=== PATIENT | female | born 1960 | race Caucasian/White ===

== ENCOUNTER 2017-01-15 12:26 | Observation (INO) | payer OTHER, MEDICAID ==
[~2017-01-15] VITALS: Ht 165.1 cm; Wt 86.2 kg
[2017-01-15 13:33] LABS: Basophils # (auto) 0 uL; Basophils % (auto) 0.1 % (0.0-2.0); CONDITION Y; Eosinophils # (auto) 0 uL; Eosinophils % (auto) 0.2 % (0.0-7.0); Hematocrit 41.5 % (36.0-46.0); Hemoglobin 14.1 g/dL (12.2-16.2); Lymphocytes # (auto) 1.3 uL; Lymphocytes % (auto) 21.1 % (10.0-50.0); Mean Corpuscular Hemoglobin 30.5 pg (28.0-32.0); Mean Corpuscular Hgb Conc. 33.8 g/dL (32.0-36.0); Mean Corpuscular Volume 90.3 fL (80.0-100.0); Mean Platelet Volume 9.4 fL (7.4-10.4); Monocytes # (auto) 0.1 uL; Monocytes % (auto) 2.3 % (0.0-12.0); Neutrophils # (auto) 4.6 uL; Neutrophils % (auto) 76.3 % (37.0-80.0); Platelet Count (auto) 345 10^3/uL (140-450); Red Cell Distribution Width 13.6 % (11.6-16.0)
[2017-01-15 14:02] LABS: Albumin 4.1 g/dL (3.4-5.0); Alkaline Phosphatase 85 U/L (45-117); Amylase 201 U/L (25-115); Anion Gap 9 (5-15); Aspartate Aminotransferase 17 U/L (15-37); BUN/Creatinine Ratio 13.4; Bilirubin, Total 0.8 mg/dL (0.2-1.0); Blood Urea Nitrogen 11 mg/dL (7-18); Calcium 9.4 mg/dL (8.5-10.1); Carbon Dioxide 22 mmol/L (21-32); Chloride 107 mmol/L (98-107); GFR African American 93 mL/min; GFR Non-African American 77 mL/min; Glucose 113 mg/dL (74-106); Sodium 138 mmol/L (136-145); Total Protein 8.1 g/dL (6.4-8.2)
[2017-01-15] MEDS ORDERED: SODIUM CHLORIDE 0.9% 1,000 ML IVB ONE (15:28)
[2017-01-15 15:58] LABS: INR 0.97 (0.9-1.15); Partial Thromboplastin Time 24.3 sec (22.64-33.71); Prothrombin Time 10.6 sec (9.37-12.3)
[2017-01-15] MEDS ORDERED: KETOROLAC TROMETH 30 MG/ML 1ML VIAL IV ONE (16:30)
[2017-01-15 16:44] VITALS: BP 105/90
[2017-01-15 17:12] LABS: Urine Bilirubin Negative (Negative); Urine Blood Negative /uL (Negative); Urine Color Yellow (Yellow); Urine Glucose Normal (Normal); Urine Ketone 2+ (Negative); Urine Mucus FEW (None Seen); Urine Nitrite Negative (Negative); Urine RBC <1 /hpf (0 - 4); Urine Squamous Epithelial Cell MOD /hpf (<5); Urine Urobilinogen Normal (Negative); Urine pH 6.5 (5.0-8.0)
== END 2017-01-15 18:11 | disposition home or self-care (01) | DRG 690 ==
LOC: ER 12:26 → EDBD 12:26 → OVERFLOW 15:30 → ER 18:11
PROVIDERS: ADMIT Family Medicine; ATTEND Family Medicine
DX: N39.0 Urinary tract infection, site not specified (principal); R11.0 Nausea; E03.9 Hypothyroidism, unspecified; I10 Essential (primary) hypertension; M06.9 Rheumatoid arthritis, unspecified; M79.7 Fibromyalgia; Z82.49 Family history of ischemic heart disease and other diseases of the circulatory system; Z83.3 Family history of diabetes mellitus; Z90.49 Acquired absence of other specified parts of digestive tract
CPT/HCPCS: 36415; 71010; 74176; 80053; 81001; 82150; 83690; 83735; 84484; 85025; 85610; 85730; 93005; 99285; G0378

== ENCOUNTER 2019-05-10 12:45 | Emergency (ER) | payer OTHER, MEDICAID ==
[~2019-05-10] VITALS: Ht 162.6 cm; Wt 86.2 kg
[2019-05-10] MEDS ORDERED: PROMETHAZINE HCL 25 MG/ML 1ML IV PRN (13:15)
[2019-05-10 13:57] LABS: Basophils # (auto) 0 uL; Basophils % (auto) 0.8 % (0.0-2.0); Eosinophils # (auto) 0 uL; Eosinophils % (auto) 0.1 % (0.0-7.0); Hematocrit 43.5 % (36.0-46.0); Hemoglobin 14.7 g/dL (12.2-16.2); Lymphocytes # (auto) 0.6 uL; Lymphocytes % (auto) 17.3 % (10.0-50.0); Mean Corpuscular Hemoglobin 30.9 pg (28.0-32.0); Mean Corpuscular Hgb Conc. 33.7 g/dL (32.0-36.0); Mean Corpuscular Volume 91.9 fL (80.0-100.0); Monocytes # (auto) 0.3 uL; Monocytes % (auto) 7.6 % (0.0-12.0); Neutrophils # (auto) 2.7 uL; Neutrophils % (auto) 74.2 % (37.0-80.0); Platelet Count (auto) 260 10^3/uL (140-450); Red Blood Cells 4.73 10^6/uL (4.0-5.20); Red Cell Distribution Width 14.7 % (11.8-14.3); White Blood Cell 3.6 10^3/uL (4.4-10.8)
[2019-05-10 14:20] LABS: BUN/Creatinine Ratio 11.2; Magnesium 2.2 mg/dL (1.6-2.6); Potassium 4.2 mmol/L (3.5-5.1)
[2019-05-10 14:23] LABS: Bilirubin, Total 0.4 mg/dL (0.2-1.0); Total Protein 8.1 g/dL (6.4-8.2)
[2019-05-10] MEDS ORDERED: metroNIDAZOLE 500MG/100ML 100 ML IV ONE (16:30)
[2019-05-10 17:53] VITALS: BP 125/72
== END 2019-05-10 18:30 | disposition home or self-care (01) ==
LOC: EDBD 12:45 → ER 12:49
DX: K52.9 Noninfective gastroenteritis and colitis, unspecified (principal); Z88.1 Allergy status to other antibiotic agents; Z88.2 Allergy status to sulfonamides; Z88.6 Allergy status to analgesic agent
CPT/HCPCS: 36415; 71045; 74176; 80053; 82150; 83690; 83735; 85025; 93005; 96365; 96375; 99284; J2550; J3490

== ENCOUNTER 2021-01-30 13:24 | Emergency (ER) | payer OTHER, MEDICAID ==
[~2021-01-30] VITALS: Ht 165.1 cm; Wt 86.2 kg
[2021-01-30 14:55] VITALS: BP 161/88
[2021-01-30] MEDS ORDERED: KETOROLAC TROMETH 60MG/2ML VIAL IM ONE (16:00)
== END 2021-01-30 16:34 | disposition home or self-care (01) ==
LOC: ER 13:24 → EDBD 13:24 → ER 16:26
DX: S32.018A Other fracture of first lumbar vertebra, initial encounter for closed fracture (principal); S16.1XXA Strain of muscle, fascia and tendon at neck level, initial encounter; S80.02XA Contusion of left knee, initial encounter; R51.9 Headache, unspecified; J45.909 Unspecified asthma, uncomplicated; Z90.49 Acquired absence of other specified parts of digestive tract; Z88.1 Allergy status to other antibiotic agents; Z88.2 Allergy status to sulfonamides; Z88.8 Allergy status to other drugs, medicaments and biological substances; V49.9XXA Car occupant (driver) (passenger) injured in unspecified traffic accident, initial encounter; Y93.89 Activity, other specified; Y92.410 Unspecified street and highway as the place of occurrence of the external cause; Y99.8 Other external cause status
CPT/HCPCS: 70450; 72040; 72100; 73560; 93005; 96372; 99284; J1885

== ENCOUNTER 2022-11-22 20:33 | Emergency (ER) | payer OTHER, MEDICAID ==
[~2022-11-22] VITALS: Ht 165.1 cm; Wt 88.6 kg
[2022-11-22 23:02] VITALS: BP 166/75
[2022-11-22] MEDS ORDERED: BACIOIN EX (23:24)
== END 2022-11-22 23:33 | disposition home or self-care (01) ==
LOC: ER 20:37
DX: H10.5 Blepharoconjunctivitis (principal); J45.909 Unspecified asthma, uncomplicated; Z90.49 Acquired absence of other specified parts of digestive tract; Z88.1 Allergy status to other antibiotic agents; Z88.2 Allergy status to sulfonamides; Z88.6 Allergy status to analgesic agent